=== PATIENT | female | born 1995 | race Two or more races ===

== ENCOUNTER 2024-06-11 09:54 | Emergency (ER) | payer OTHER ==
[~2024-06-11] VITALS: Ht 167.6 cm; Wt 85.7 kg
[~2024-06-11 09:54] MED LIST: SYNTHROID50 MCG
[2024-06-11] MEDS ORDERED: ONDANSETRON HCL 2 MG/ML VIAL IV STA (10:38)
[2024-06-11] MEDS ORDERED: FAMOtidine 10 MG/ML (4ML VIAL) IV STA (10:38)
[2024-06-11] MEDS ORDERED: 0.9 % SODIUM CHLORIDE 1,000 ML IV ONE (10:45)
[2024-06-11] MEDS ORDERED: ONDANSETRON HCL 2 MG/ML VIAL ONE ×3 (10:53→14:11)
[2024-06-11 11:55] LABS: HEMATOCRIT 41.7 % (36.0-45.00); HEMOGLOBIN 14.4 g/dL (12.0-15.00); MEAN CELL VOLUME 81.3 fL (80.00-100.00); MEAN CORPUSCULAR HEMOGLOBIN 28.1 pg (27.00-32.0); MEAN CORPUSCULAR HGB CONC 34.6 g/dl (32.0-36.0); PLATELET COUNT 355 K/uL (150-450); RED BLOOD COUNT 5.13 M/uL (4.00-6.00); RED CELL DISTRIBUTION WIDTH 13.4 % (11.5-14.5)
[2024-06-11 12:30] LABS: ALKALINE PHOSPHATASE 89 U/L (50-136); ALT/SGPT 36 U/L (12-78); AMYLASE 62 U/L (25-115); ANION GAP 7 (10.0-20.0); AST/SGOT 20 U/L (15-37); BILIRUBIN TOTAL 0.34 mg/dL (0.3-1.2); BILIRUBIN,CONJUGATED < 0.10 mg/dL (0.0-0.2); BILIRUBIN,UNCONJUGATED 0.24 mg/dL (0.0-0.6); BLOOD UREA NITROGEN 8 mg/dL (7-18); BUN CREA RATIO 12 (7.0-25.0); CALCIUM 9.3 mg/dL (8.5-10.1); CARBON DIOXIDE 29 mEq/L (21-32); CHLORIDE 108 mmol/L (98-107); CREATININE SERUM 0.67 mg/dL (0.55-1.02); GFR 103.34; GLUCOSE FASTING 114 mg/dL (65-100); LIPASE 27 U/L (13-75); OSMOLALITY SERUM 279 MOSM/KG (275-295); SODIUM 140 mmol/L (136-145)
[2024-06-11 12:31] LABS: HCG QUANTITATIVE < 1 mUI/mL (1-3)
[2024-06-11 13:20] LABS: URINE APPEARANCE Cloudy; URINE BILIRRUBIN Negative (NEGATIVE); URINE BLOOD Negative; URINE COLOR Yellow; URINE GLUCOSE Negative (NEGATIVE); URINE LEUKOCYTE Negative; URINE NITRATE Negative; URINE PROTEIN Negative (NEGATIVE)
[2024-06-11 13:25] LABS: URINE BACTERIA 5078.8 uL (0.0-1933); URINE EPITHELIAL CELLS 32.3 uL (0.0-38.8); URINE RBC 13.7 uL (0.0-20.8); URINE WBC 41.1 uL (0.0-23.2)
[2024-06-11 13:45] LABS: URINE CRYSTALS MODERATE /HPF
[2024-06-11] MEDS ORDERED: ONDANSETRON HCL 2 MG/ML VIAL IV ONE (14:15)
[2024-06-11] MEDS ORDERED: CEFTRIAXONE SODIUM 1,000 MG VIAL IV STA (14:49)
[2024-06-11] MEDS ORDERED: CEFTRIAXONE SODIUM 1,000 MG VIAL ONE (15:17)
== END 2024-06-11 15:49 | disposition home or self-care (01) ==
LOC: ER 09:55
PROVIDERS: General Practice
DX: N83.201 Unspecified ovarian cyst, right side (principal); E03.9 Hypothyroidism, unspecified